=== PATIENT | female | born 1955 | race Caucasian/White ===

== ENCOUNTER 2017-03-08 09:00 | Emergency (ER) | payer OTHER ==
[2017-03-08] MEDS ORDERED: SODIUM CHLORIDE FLUSH 0.9% 10 ML SYRINGE IVP ONE ×2 (09:23→12:44)
[2017-03-08 09:28] LABS: BILIRUBIN,URINE NEGATIVE (NEGATIVE); UA CHARGE (STRIP ONLY) YES; UR CULTURE IF IND NOT INDICATED
[2017-03-08] MEDS ORDERED: KETOROLAC 60 MG/2 ML VIAL IVP STA (09:28)
--- NOTE | 2017-03-08 09:33 | ED Physician Documentation ---
PD HPI ABD PAIN - Stated complaint Stated Complaint: ABD PX - Chief complaint Chief Complaint: Abd Pain - History obtained from History obtained from: Patient - History of Present Illness Timing - onset: How many days ago (3) Timing - duration: Days (3) Timing - details: Gradual onset, Still present Quality: Cramping, Aching, Sharp, Pain Location: LLQ Radiation: Lower back Improved by: Laying still Worsened by: Moving, Position, Palpation Associated symptoms: Nausea. No: Fever, Vomiting, Diarrhea, Dysuria Similar symptoms before: Diagnosis (diverticulitis) Recently seen: Not recently seen - Additional information Additional information: Relatively healthy 61-year-old female has developed left lower quadrant abdominal pain that started about 3 days ago. She has had something similar to this previously with diverticulitis. At that time she spent 2 weeks in the hospital. She has not had fever or chills she has not had vomiting she has not had diarrhea. She did have a bowel movement yesterday. Review of Systems Constitutional: denies: Fever Eyes: denies: Decreased vision Ears: denies: Ear pain Nose: denies: Congestion Throat: denies: Sore throat Cardiac: denies: Chest pain / pressure, Palpitations Respiratory: denies: Dyspnea, Cough GI: reports: Abdominal Pain, Nausea. 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: No - POLST Patient has POLST: No PD ED PE NORMAL - Vitals Vital signs reviewed: Yes (Hypertensive) - General General: No acute distress, Well developed/nourished - HEENT HEENT: Atraumatic, PERRL, EOMI - Neck Neck: Supple, no meningeal sign - Cardiac Cardiac: RRR, No murmur - Respiratory Respiratory: No respiratory distress, Clear bilaterally - Abdomen Abdomen: Soft, Other (Mild tenderness to the left side of the abdomen in general without guarding or rebound tenderness) - Back Back: No CVA TTP, No spinal TTP - Derm Derm: Normal color, Warm and dry, No rash - Extremities Extremities: No deformity, No edema - Neuro Neuro: Alert and oriented X 3, No motor deficit, No sensory deficit, Normal speech - Psych Psych: Normal mood, Normal affect Results - Vitals Vitals: Vital Signs - 24 hr 03/08/17 03/08/17 03/08/17 09:06 10:44 11:56 Temperature 36.6 C 36.5 C 35.6 C L Heart Rate 86 66 61 Respiratory 18 12 16 Rate Blood Pressure 157/87 H 147/68 H 161/72 H O2 Saturation 99 97 97 03/08/17 13:41 Temperature 36.6 C Heart Rate 60 Respiratory 18 Rate Blood Pressure 130/72 O2 Saturation 96 Oxygen O2 Source Room air - Labs Labs: Laboratory Tests 03/08/17 03/08/17 03/08/17 09:14 09:20 09:20 WBC 10.6 RBC 4.25 Hgb 13.9 Hct 41.2 MCV 96.9 MCH 32.8 H MCHC 33.8 RDW 13.2 Plt Count 197 MPV 7.8 L Neut # 8.3 H Lymph # 1.4 L [place] # 0.8 Eos # 0.0 Baso # 0.1 Absolute Nucleated RBC 0.00 Nucleated RBC % 0.0 Sodium 138 Potassium 4.0 Chloride 101 Carbon Dioxide 25 Anion Gap 12.0 BUN 14 Creatinine 0.8 Estimated GFR (MDRD) 72 L Glucose 109 H Calcium 9.7 Total Bilirubin 0.7 AST 22 ALT 24 Alkaline Phosphatase 74 Total Protein 7.8 Albumin 4.4 Globulin 3.4 Albumin/Globulin Ratio 1.3 Lipase 18 L Urine Color DARK YELLOW Urine Clarity CLEAR Urine pH 6.0 Ur Specific [place] 1.020 Urine Protein NEGATIVE Urine Glucose (UA) NEGATIVE Urine Ketones NEGATIVE Urine Occult Blood NEGATIVE Urine Nitrite NEGATIVE Urine Bilirubin NEGATIVE Urine Urobilinogen 0.2 (NORMAL) Ur Leukocyte Esterase NEGATIVE Ur Microscopic Review NOT INDICATED Urine Culture Comments NOT INDICATED - Rads (name of study) CT abdomen pelvis with Radiology: Prelim report reviewed (Impression: 1. Probable sigmoid diverticulitis. Significant mid sigmoid inflammatory changes with probable inflamed diverticulum. 8 mm sigmoid wall thickening noted. Suggest early colonoscopy, if not recently performed, to exclude mass. No abscess. Numerous diverticula noted.), EMP read indepedently, See rad report Procedures - Bedside sono Bedside sono by EMP: With use of bedside ultrasound the left kidney is imaged it is sonographically nontender and without evidence of hydronephrosis. There does appear to be a pericaval cyst. - IVC sono (time) 0930 Bedside IVC sono: IVC measures (cm) (1.6), Euvolemia PD MEDICAL DECISION MAKING - ED course Complexity details: reviewed results, re-evaluated patient, considered differential, d/w patient ED course: 61-year-old female with recurrence of sigmoid diverticulitis. She had a previous hospitalization with a microperforation. Today she does not appear to have perforation or abscess. She is administered intravenous Flagyl and Cipro. We will place her on oral Cipro and Flagyl and have her follow-up with her primary. Departure - Departure Disposition: 01 Home, Self Care Clinical Impression: Diverticulitis of gastrointestinal tract Condition: Stable Instructions: ED Diverticulitis Follow-Up: Jaylene Corley ARNP [Primary Care Provider] - Prescriptions: Ciprofloxacin HCl [Cipro] 500 mg PO BID #10 tablet HYDROcod/ACETAM 5/325 [[place] 5/325] 1 - 2 ea PO Q6H PRN #15 tablet PRN Reason: Pain Metronidazole 500 mg PO BID #20 tablet Comments: Today in the Emergency Department your blood pressure was elevated. This can happen from the stress of the visit itself, from a current illness or circumstance or from uncontrolled hypertension. If you take blood pressure medications take your usual mediations, have your blood pressure re-checked in an appropriate setting and follow up any elevation with your primary care doctor. Forms: Activity restrictions
[2017-03-08 09:39] LABS: BASOPHILS # (AUTO) 0.1 10^3/uL (0.0-0.1); BASOPHILS % (AUTO) 0.5 %; EOSINOPHILS % (AUTO) 0.3 %; HCT - HEMATOCRIT 41.2 % (37.0-47.0); HGB - HEMOGLOBIN 13.9 g/dL (12.0-16.0); LYMPHOCYTES # (AUTO) 1.4 10^3/uL (1.5-3.5); LYMPHOCYTES % (AUTO) 12.8 %; MEAN CORPUSCULAR HEMOGLOBIN 32.8 pg (27.0-31.0); MEAN CORPUSCULAR HGB CONC 33.8 g/dL (32.0-36.0); MEAN CORPUSCULAR VOLUME 96.9 fL (81.0-99.0); MEAN PLATELET VOLUME 7.8 fL (7.9-10.8); MONOCYTES # (AUTO) 0.8 10^3/uL (0.0-1.0); MONOCYTES % (AUTO) 7.6 %; NEUTROPHILS # (AUTO) 8.3 10^3/uL (1.5-6.6); NEUTROPHILS % (AUTO) 78.8 %; RED BLOOD COUNT 4.25 10^6/uL (4.20-5.40); RED CELL DISTRIBUTION WIDTH 13.2 % (12.0-15.0); UNCORRECTED WHITE BLOOD COUNT 10.6 x10^3/uL; WHITE BLOOD COUNT 10.6 x10^3/uL (4.8-10.8)
[2017-03-08] MEDS ORDERED: KETOROLAC 30 MG/ML VIAL ONE (09:43)
[2017-03-08 09:53] LABS: ALBUMIN/GLOBULIN RATIO 1.3 (1.0-2.2); BILIRUBIN,TOTAL 0.7 mg/dL (0.2-1.0); CALCIUM 9.7 mg/dL (8.5-10.3); CREATININE 0.8 mg/dL (0.4-1.0); TOTAL PROTEIN 7.8 g/dL (6.7-8.2)
[2017-03-08] MEDS ORDERED: IOPAMIDOL-300 100 ML VIAL ONE (10:08)
[2017-03-08] MEDS ORDERED: IOPAMIDOL-300 100 ML VIAL IVP ONE (10:31)
--- NOTE | 2017-03-08 11:12 | CT Preliminary Report ---
Exam: CT Abdomen/Pelvis W/ IMPRESSION: 1. Probable sigmoid diverticulitis. Significant mid sigmoid inflammatory changes with probable inflam ed diverticulum. 8 mm sigmoid wall thickening noted. Suggest early colonoscopy, if not recently perfo rmed, to exclude mass. No abscess. Numerous diverticula noted. [facility] SITE ID: [id number]
--- NOTE | 2017-03-08 11:14 | CT Report ---
EXAM: CT ABDOMEN AND PELVIS EXAM DATE: 03/08/2017 10:33 AM. CLINICAL HISTORY: Left lower quadrant pain. COMPARISONS: None. TECHNIQUE: Routine helical CT imaging was performed through the abdomen and pelvis. IV contrast: 100 cc Isovue-300. Enteric contrast: No. Reconstructions: Coronal and sagittal. In accordance with CT protocol optimization, one or more of the following dose reduction techniques w ere utilized for this exam: automated exposure control, adjustment of mA and/or KV based on patient s ize, or use of iterative reconstructive technique. FINDINGS: Lung Bases: Dependent right basilar atelectasis. Liver: Normal. No masses. Gallbladder/Bile Ducts: Unremarkable. Spleen: Normal. Pancreas: Normal. Adrenal Glands: Normal. Kidneys: Several left renal cysts, including a 2.3 cm lateral left upper renal cyst. No suspicious ma sses or hydronephrosis. Peritoneal Cavity/Bowel: Moderate mid sigmoid inflammation likely due to diverticulitis. Probable inf lamed diverticulum anterior to mid sigmoid colon on series 3 image 65. 8 mm sigmoid wall thickness. A djacent soft tissue stranding. Numerous diverticula. No dilated bowel. Pelvic Organs: Probable prior hysterectomy with collapsed small bowel loops adjacent to bladder. Unre markable bladder. Vasculature: No abdominal aortic aneurysm. Extensive atherosclerotic arterial calcifications. Bones: No significant abnormality. Other: None. IMPRESSION: 1. Probable sigmoid diverticulitis. Significant mid sigmoid inflammatory changes with probable inflam ed diverticulum. 8 mm sigmoid wall thickening noted. Suggest early colonoscopy, if not recently perfo rmed, to exclude mass. No abscess. Numerous diverticula noted. [facility] Referring Provider Line: [phone] SITE ID: [id number]
[2017-03-08] MEDS ORDERED: metroNIDAZOLE 500 MG/100 ML 500 MG/100 ML BAG IV ONE (11:16)
[2017-03-08] MEDS ORDERED: CIPROFLOXACIN 400 MG/200 ML 200 ML IV ONE ×2 (11:16→11:39)
[2017-03-08] MEDS ORDERED: metroNIDAZOLE 500 MG/100 ML 500 MG/100 ML BAG ONE (12:33)
[2017-03-08 13:42] VITALS: BP 130/72
== END 2017-03-08 14:03 | disposition home or self-care (01) ==
LOC: ED 09:00
DX: K57.92 Diverticulitis of intestine, part unspecified, without perforation or abscess without bleeding (principal); R03.0 Elevated blood-pressure reading, without diagnosis of hypertension; F17.200 Nicotine dependence, unspecified, uncomplicated
CPT/HCPCS: 36415; 74177; 80053; 81003; 83690; 85025; 96365; 96367; 96375; 99284; Q9967; 81001; 87086

== ENCOUNTER 2017-08-26 21:16 | Outpatient (CLI) | payer OTHER | END 2017-08-26 21:17 | disposition critical access hospital (66) | LOC: EDBD → EMS 21:16 | PROVIDERS: ATTEND Surgery | DX: R53.1 Weakness (principal); R55 Syncope and collapse; R07.9 Chest pain, unspecified | CPT/HCPCS: A0425; A0427 ==

== ENCOUNTER 2017-08-26 21:32 | Emergency (ER) | payer OTHER ==
[2017-08-26] MEDS ORDERED: SODIUM CHLORIDE 0.9% 1,000 ML IV ONE (21:41)
[2017-08-26 22:08] LABS: BASOPHILS # (AUTO) 0.1 10^3/uL (0.0-0.1); BASOPHILS % (AUTO) 0.5 %; EOSINOPHILS # (AUTO) 0.1 10^3/uL (0.0-0.7); EOSINOPHILS % (AUTO) 0.4 %; HGB - HEMOGLOBIN 13.9 g/dL (12.0-16.0); LYMPHOCYTES # (AUTO) 1.2 10^3/uL (1.5-3.5); LYMPHOCYTES % (AUTO) 10.7 %; MEAN CORPUSCULAR HGB CONC 32.9 g/dL (32.0-36.0); MEAN CORPUSCULAR VOLUME 97.3 fL (81.0-99.0); MEAN PLATELET VOLUME 7.6 fL (7.9-10.8); MONOCYTES # (AUTO) 0.8 10^3/uL (0.0-1.0); MONOCYTES % (AUTO) 6.7 %; NEUTROPHILS # (AUTO) 9.4 10^3/uL (1.5-6.6); NEUTROPHILS % (AUTO) 81.7 %; PLT - PLATELET COUNT 203 10^3/uL (130-450); RED BLOOD COUNT 4.33 10^6/uL (4.20-5.40); RED CELL DISTRIBUTION WIDTH 13.3 % (12.0-15.0); WHITE BLOOD COUNT 11.5 x10^3/uL (4.8-10.8)
--- NOTE | 2017-08-26 22:11 | XRAY Preliminary Report ---
Exam: XR CHEST 2 VIEW X-RAY IMPRESSION: No acute pulmonary process. Probable COPD. [facility] SITE ID: [id number]
[2017-08-26 22:17] LABS: MUDS CUTOFF CONCENTRATIONS CUTOFF CONC BELOW:
[2017-08-26 22:19] LABS: BILIRUBIN,URINE NEGATIVE (NEGATIVE); GLUCOSE, URINE (UA) NEGATIVE (NEGATIVE); KETONES,URINE (UA) NEGATIVE (NEGATIVE); LEUKOCYTE ESTERASE, URINE NEGATIVE (NEGATIVE); NITRITE,URINE NEGATIVE (NEGATIVE); OCCULT BLOOD,URINE NEGATIVE (NEGATIVE); PROTEIN,URINE 30 mg/dL (NEGATIVE); UROBILINOGEN,URINE 0.2 (NORMAL) E.U./dL (NORMAL)
--- NOTE | 2017-08-26 22:20 | XRAY Report ---
EXAM: CHEST RADIOGRAPHY EXAM DATE: 08/26/2017 09:53 PM. CLINICAL HISTORY: Chest pain, hypotension. COMPARISON: None. TECHNIQUE: 2 views. FINDINGS: Lungs/Pleura: Lungs are mildly hyperinflated. No focal opacities. No pneumothorax or effusions. Mediastinum: Heart and mediastinal contours are unremarkable. Other: None. IMPRESSION: No acute pulmonary process. Probable COPD. [facility] Referring Provider Line: [phone] SITE ID: [id number]
[2017-08-26 22:21] LABS: CLARITY,URINE HAZY (CLEAR)
[2017-08-26 22:21] LABS: ALBUMIN 4.3 g/dL (3.2-5.5); ALBUMIN/GLOBULIN RATIO 1.7 (1.0-2.2); ALKALINE PHOSPHATASE 96 IU/L (42-121); ALT ALANINE AMINOTRANSFERASE 42 IU/L (10-60); AST ASPARTATE AMINOTRANSFERASE 67 IU/L (10-42); BILIRUBIN,TOTAL 0.4 mg/dL (0.2-1.0); BUN - BLOOD UREA NITROGEN 18 mg/dL (6-20); CALCIUM 8.9 mg/dL (8.5-10.3); CARBON DIOXIDE - CO2 27 mmol/L (21-32); CHLORIDE 109 mmol/L (101-111); CREATININE 0.9 mg/dL (0.4-1.0); GFR - MDRD 63 (>89); GLUCOSE 110 mg/dL (70-100); LIPASE 15 U/L (22-51); SODIUM 143 mmol/L (135-145); TOTAL PROTEIN 6.9 g/dL (6.7-8.2)
[2017-08-26 22:28] LABS: RBC,URINE None Seen /HPF (0-5)
[2017-08-26 22:29] LABS: AMORPHOUS SEDIMENT,UR Moderate /LPF; AMPHETAMINE SCREEN,URINE NEGATIVE (NEGATIVE); BACTERIA,URINE Few /HPF (None Seen); BENZODIAZEPINES SCREEN, URINE NEGATIVE (NEGATIVE); COCAINE SCREEN URINE NEGATIVE (NEGATIVE); METHADONE SCREEN, URINE NEGATIVE (NEGATIVE); METHAMPHETAMINES SCREEN, URINE NEGATIVE (NEGATIVE); OPIATE SCREEN, URINE NEGATIVE (NEGATIVE); OXYCODONE SCREEN, URINE NEGATIVE (NEGATIVE); PROPOXYPHENE SCREEN, URINE NEGATIVE (NEGATIVE); SQUAMOUS EPITHELIAL CELL,UR MANY Squamous (<= Few); TRICYCLIC ANTIDEPRESSANT,URINE NEGATIVE (NEGATIVE)
[2017-08-26] MEDS ORDERED: IOPAMIDOL-300 100 ML VIAL ONE (22:43)
[2017-08-26] MEDS ORDERED: IOPAMIDOL-300 100 ML VIAL IVP ONE (22:57)
--- NOTE | 2017-08-26 23:14 | CT Preliminary Report ---
Exam: CT CHEST ANGIO (PE) IMPRESSION: 1. No pulmonary emboli seen. 2. Emphysema with bilateral interstitial disease of uncertain chronicity. Mild interstitial edema cou ld be present. 3. Coronary artery calcifications. [facility] SITE ID: [id number]
--- NOTE | 2017-08-26 23:14 | CT Report ---
EXAM: CT ANGIOGRAM CHEST EXAM DATE: 08/26/2017 11:01 PM. CLINICAL HISTORY: Chest pain, syncope. COMPARISON: None. TECHNIQUE: Routine helical imaging was performed through the chest in the pulmonary arterial phase. I V Contrast: Nonionic. Reconstructions: Coronal 3-D MIP reconstructions.Sagittal and coronal. In accordance with CT protocol optimization, one or more of the following dose reduction techniques w ere utilized for this exam: automated exposure control, adjustment of mA and/or KV based on patient s ize, or use of iterative reconstructive technique. FINDINGS: Pulmonary Arteries: Diagnostic quality: Adequate through the segmental arteries. No evidence for acute or chronic pulmona ry emboli. No evidence of right heart strain. Lungs/Pleura: Emphysema. Interstitial disease of uncertain chronicity. Mild bibasilar atelectasis. No pleural effusion. No pneumothorax. Mediastinum: Heart size is normal. Coronary artery calcifications. No lymphadenopathy seen. Thoracic Aorta: Moderate atherosclerosis. No aneurysm or dissection. Upper Abdomen: Unremarkable. Other: None. IMPRESSION: 1. No pulmonary emboli seen. 2. Emphysema with bilateral interstitial disease of uncertain chronicity. Mild interstitial edema cou ld be present. 3. Coronary artery calcifications. [facility] Referring Provider Line: [phone] SITE ID: [id number]
--- NOTE | 2017-08-26 23:49 | ED Physician Documentation ---
PD HPI SYNCOPE - Stated complaint Stated Complaint: NEAR SYNCOPE - Chief complaint Chief Complaint: Neuro - History obtained from History obtained from: Patient, EMS - History of Present Illness Timing - onset: Today Duration: Minutes Preceding symptoms: Chest pain, Diaphoresis Associated symptoms: No: Seizure Contributing factors: No: Noxious stimulae, Just stood up Similar symptoms before: Has not had sx before Recently seen: Not recently seen - Additional information Additional information: Patient is a 62 year old female with likely emphysema who was brought in by ems for near syncopal episode and chest pain. According to patient and ems patient was in her bathroom and had severe left sided chest pain, became diaphoretic and almost passed out. patient called ems. When ems arrived patient was found to be hypotensive. Patient was treated with 325mg of aspirin and nitro before being brought to the emergency department. Upon initial evaluation in the emergency department patient's chest pain had improved and she was normotensive. ptient was mildly diaphoretic. Review of Systems Constitutional: denies: Fever, Chills, Myalgias Eyes: denies: Decreased vision, Photophobia Ears: reports: Reviewed and negative Nose: reports: Reviewed and negative Throat: reports: Reviewed and negative Cardiac: reports: Chest pain / pressure. denies: Palpitations, Calf pain Respiratory: denies: Dyspnea, Cough, Wheezing GI: reports: Nausea. denies: Abdominal Pain, Vomiting, Diarrhea : reports: Reviewed and negative Skin: reports: Other (diaphoresis). denies: Rash, Lesions Musculoskeletal: denies: Extremity pain, Extremity swelling Neurologic: reports: Near syncope. 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: No - POLST Patient has POLST: No PD ED PE NORMAL - Vitals Vital signs reviewed: Yes - General General: Alert and oriented X 3 - HEENT HEENT: Atraumatic - Neck Neck: No JVD - Cardiac Cardiac: RRR - Abdomen Abdomen: Soft, Non distended - Derm Derm: Normal color - Extremities Extremities: No calf tenderness / cord - Neuro Neuro: Alert and oriented X 3, No motor deficit, Normal speech Eye Opening: Spontaneous Motor: Obeys Commands Verbal: Oriented GCS Score: 15 PD ED PE EXPANDED - Respiratory Respiratory: Wheezing (minimal wheezing) - Derm Derm: Diaphoretic Results - Vitals Vitals: Vital Signs - 24 hr 08/26/17 08/27/17 21:35 01:24 Heart Rate 83 66 Respiratory 18 14 Rate Blood Pressure 165/81 H 116/64 O2 Saturation 97 100 Oxygen O2 Source Room air - EKG (time done) 2140 Rate: Rate (enter#) (82) Rhythm: NSR, SVT Intervals: Prolonged QT Ischemia: ST depression Compare to prior EKG: Old EKG unavailable 2259 Rate: Rate (enter#) (83) [place]: Normal Intervals: Normal MA Ischemia: ST depression Compare to prior EKG: Unchanged from prior EKG - Labs Labs: Laboratory Tests 08/26/17 08/26/17 08/26/17 21:59 21:59 21:59 WBC 11.5 H RBC 4.33 Hgb 13.9 Hct 42.1 MCV 97.3 MCH 32.0 H MCHC 32.9 RDW 13.3 Plt Count 203 MPV 7.6 L Neut # 9.4 H Lymph # 1.2 L [place] # 0.8 Eos # 0.1 Baso # 0.1 Absolute Nucleated RBC 0.01 Nucleated RBC % 0.1 Sodium 143 Potassium 4.2 Chloride 109 Carbon Dioxide 27 Anion Gap 7.0 BUN 18 Creatinine 0.9 Estimated GFR (MDRD) 63 L Glucose 110 H Lactic Acid Calcium 8.9 Total Bilirubin 0.4 AST 67 H ALT 42 Alkaline Phosphatase 96 Troponin I 0.12 B-Natriuretic Peptide Total Protein 6.9 Albumin 4.3 Globulin 2.6 Albumin/Globulin Ratio 1.7 Lipase 15 L TSH Urine Color Urine Clarity Urine pH Ur Specific [place] Urine Protein Urine Glucose (UA) Urine Ketones Urine Occult Blood Urine Nitrite Urine Bilirubin Urine Urobilinogen Ur Leukocyte Esterase Urine RBC Urine WBC Ur Squamous Epith Cells Amorphous Sediment Urine Bacteria Ur Microscopic Review Urine Culture Comments Urine Opiates Screen Ur Oxycodone Screen Urine Methadone Screen Ur Propoxyphene Screen Ur Barbiturates Screen Ur Tricyclics Screen Ur Phencyclidine Scrn Ur Amphetamine Screen U Methamphetamines Scrn U Benzodiazepines Scrn Urine Cocaine Screen U Cannabinoids Screen Ethyl Alcohol < 5.0 08/26/17 08/26/17 08/26/17 21:59 21:59 21:59 WBC RBC Hgb Hct MCV MCH MCHC RDW Plt Count MPV Neut # Lymph # [place] # Eos # Baso # Absolute Nucleated RBC Nucleated RBC % Sodium Potassium Chloride Carbon Dioxide Anion Gap BUN Creatinine Estimated GFR (MDRD) Glucose Lactic Acid 1.7 Calcium Total Bilirubin AST ALT Alkaline Phosphatase Troponin I B-Natriuretic Peptide 28 Total Protein Albumin Globulin Albumin/Globulin Ratio Lipase TSH 8.18 H Urine Color Urine Clarity Urine pH Ur Specific [place] Urine Protein Urine Glucose (UA) Urine Ketones Urine Occult Blood Urine Nitrite Urine Bilirubin Urine Urobilinogen Ur Leukocyte Esterase Urine RBC Urine WBC Ur Squamous Epith Cells Amorphous Sediment Urine Bacteria Ur Microscopic Review Urine Culture Comments Urine Opiates Screen Ur Oxycodone Screen Urine Methadone Screen Ur Propoxyphene Screen Ur Barbiturates Screen Ur Tricyclics Screen Ur Phencyclidine Scrn Ur Amphetamine Screen U Methamphetamines Scrn U Benzodiazepines Scrn Urine Cocaine Screen U Cannabinoids Screen Ethyl Alcohol 08/26/17 08/26/17 22:10 23:40 WBC RBC Hgb Hct MCV MCH MCHC RDW Plt Count MPV Neut # Lymph # [place] # Eos # Baso # Absolute Nucleated RBC Nucleated RBC % Sodium Potassium Chloride Carbon Dioxide Anion Gap BUN Creatinine Estimated GFR (MDRD) Glucose Lactic Acid Calcium Total Bilirubin AST ALT Alkaline Phosphatase Troponin I 0.11 B-Natriuretic Peptide Total Protein Albumin Globulin Albumin/Globulin Ratio Lipase TSH Urine Color YELLOW Urine Clarity [place] Urine pH 7.0 Ur Specific [place] 1.020 Urine Protein 30 H Urine Glucose (UA) NEGATIVE Urine Ketones NEGATIVE Urine Occult Blood NEGATIVE Urine Nitrite NEGATIVE Urine Bilirubin NEGATIVE Urine Urobilinogen 0.2 (NORMAL) Ur Leukocyte Esterase NEGATIVE Urine RBC None Seen Urine WBC 0-3 Ur Squamous Epith Cells MANY Squamous H Amorphous Sediment Moderate Urine Bacteria Few Ur Microscopic Review INDICATED Urine Culture Comments NOT INDICATED Urine Opiates Screen NEGATIVE Ur Oxycodone Screen NEGATIVE Urine Methadone Screen NEGATIVE Ur Propoxyphene Screen NEGATIVE Ur Barbiturates Screen NEGATIVE Ur Tricyclics Screen NEGATIVE Ur Phencyclidine Scrn NEGATIVE Ur Amphetamine Screen NEGATIVE U Methamphetamines Scrn NEGATIVE U Benzodiazepines Scrn NEGATIVE Urine Cocaine Screen NEGATIVE U Cannabinoids Screen NEGATIVE Ethyl Alcohol - Rads (name of study) ct angio Radiology: Final report received (No PE, but calcification of coronary arteries) , See rad report PD MEDICAL DECISION MAKING - ED course Complexity details: reviewed old records, reviewed results, re-evaluated patient , considered differential, d/w patient, d/w family, d/w mergers and acquisitions consultant ED course: Patient was seen and examined at bedside. ekg was performed and showed diffuse ST segment depressions but no elevations. IV access was gained and labs were drawn. patient was treated with a fluid bolus. CT angio was ordered. There was No PE but there was calcification of the coronaries. Patient's troponin was mildly elevated but not positive. patient required a higher level of care with cardiology so [facility] was contacted. Case was discussed with Dr. Ramirez Cardiology, and Dr. Arroyo hospitalist who ultimately accepted the patient. Patient was made aware of the findings and the plan and was transferred in stable condition. Departure - Departure Disposition: 02 Transfer Acute Care Hosp Clinical Impression: Syncope Condition: Stable
[2017-08-27 01:24] VITALS: BP 116/64
== END 2017-08-27 01:59 | disposition short-term general hospital (02) ==
LOC: EDBD → EDUNIT# → EDBD 21:32 → ED 21:32
DX: R55 Syncope and collapse (principal); F17.200 Nicotine dependence, unspecified, uncomplicated
CPT/HCPCS: 36415; 71046; 71275; 80053; 80306; 80320; 81001; 83605; 83690; 83880; 84443; 84484; 85025; 93005; 96360; 96361; 99285; Q9967; 81003; 87086; 99284

== ENCOUNTER 2017-08-27 01:50 | Outpatient (CLI) | payer OTHER | END 2017-08-27 01:51 | disposition short-term general hospital (02) | LOC: EDBD → EMS 01:50 | PROVIDERS: ATTEND Surgery | DX: R55 Syncope and collapse (principal) | CPT/HCPCS: A0425; A0428 ==

== ENCOUNTER 2017-10-07 08:01 | Outpatient (CLI) | payer OTHER ==
[2017-10-07 13:16] LABS: BASOPHILS % (AUTO) 0.5 %; EOSINOPHILS # (AUTO) 0.2 10^3/uL (0.0-0.7); EOSINOPHILS % (AUTO) 1.9 %; HGB - HEMOGLOBIN 13.5 g/dL (12.0-16.0); LYMPHOCYTES # (AUTO) 1.2 10^3/uL (1.5-3.5); LYMPHOCYTES % (AUTO) 13.3 %; MEAN CORPUSCULAR HEMOGLOBIN 31.9 pg (27.0-31.0); MEAN CORPUSCULAR VOLUME 99.7 fL (81.0-99.0); MEAN PLATELET VOLUME 8.1 fL (7.9-10.8); MONOCYTES # (AUTO) 0.7 10^3/uL (0.0-1.0); MONOCYTES % (AUTO) 7.6 %; NEUTROPHILS # (AUTO) 6.8 10^3/uL (1.5-6.6); NEUTROPHILS % (AUTO) 76.7 %; PLT - PLATELET COUNT 233 10^3/uL (130-450); RED BLOOD COUNT 4.23 10^6/uL (4.20-5.40); RED CELL DISTRIBUTION WIDTH 14.5 % (12.0-15.0); WHITE BLOOD COUNT 8.9 x10^3/uL (4.8-10.8)
[2017-10-07 13:21] LABS: BUN - BLOOD UREA NITROGEN 15 mg/dL (6-20); CALCIUM 9.7 mg/dL (8.5-10.3); CARBON DIOXIDE - CO2 24 mmol/L (21-32); CHLORIDE 104 mmol/L (101-111); CHOL/HDL RATIO 2.2 (<4.4); CHOLESTEROL 146 mg/dL; CREATININE 0.8 mg/dL (0.4-1.0); GFR - MDRD 72 (>89); GLUCOSE 97 mg/dL (70-100); HDL CHOLESTEROL 65 mg/dL; LDL CHOLESTEROL,CALCULATED 57 mg/dL; LDL/HDL RATIO 0.9 (<4.4); SODIUM 137 mmol/L (135-145); VLDL CHOLESTEROL 24 mg/dL
== END 2017-10-07 08:02 | disposition home or self-care (01) ==
LOC: LAB.N 08:01
PROVIDERS: ATTEND Physician Assistant
DX: I25.10 Atherosclerotic heart disease of native coronary artery without angina pectoris (principal)
CPT/HCPCS: 36415; 80048; 80061; 83721; 85025

== ENCOUNTER 2018-03-16 07:33 | Outpatient (CLI) | payer MEDICARE, OTHER ==
[2018-03-16 12:59] LABS: BASOPHILS % (AUTO) 0.3 %; BUN - BLOOD UREA NITROGEN 20 mg/dL (6-20); CALCIUM 9.2 mg/dL (8.5-10.3); CARBON DIOXIDE - CO2 28 mmol/L (21-32); CHLORIDE 107 mmol/L (101-111); CHOL/HDL RATIO 1.9 (<4.4); CHOLESTEROL 147 mg/dL; CREATININE 0.8 mg/dL (0.4-1.0); EOSINOPHILS # (AUTO) 0.1 10^3/uL (0.0-0.7); EOSINOPHILS % (AUTO) 1.9 %; GFR - MDRD 72 (>89); GLUCOSE 101 mg/dL (70-100); HDL CHOLESTEROL 77 mg/dL; HGB - HEMOGLOBIN 14.1 g/dL (12.0-16.0); LDL CHOLESTEROL,CALCULATED 52 mg/dL; LDL/HDL RATIO 0.7 (<4.4); LYMPHOCYTES # (AUTO) 1.3 10^3/uL (1.5-3.5); LYMPHOCYTES % (AUTO) 22.2 %; MEAN CORPUSCULAR HGB CONC 33.6 g/dL (32.0-36.0); MEAN CORPUSCULAR VOLUME 98.3 fL (81.0-99.0); MEAN PLATELET VOLUME 8.1 fL (7.9-10.8); MONOCYTES # (AUTO) 0.4 10^3/uL (0.0-1.0); NEUTROPHILS % (AUTO) 68.6 %; PLT - PLATELET COUNT 200 10^3/uL (130-450); RED BLOOD COUNT 4.29 10^6/uL (4.20-5.40); RED CELL DISTRIBUTION WIDTH 14.2 % (12.0-15.0); SODIUM 141 mmol/L (135-145); VLDL CHOLESTEROL 18 mg/dL; WHITE BLOOD COUNT 5.8 x10^3/uL (4.8-10.8)
== END 2018-03-16 07:34 | disposition home or self-care (01) ==
LOC: LAB.N 07:33
PROVIDERS: ATTEND Physician Assistant Medical
DX: I25.10 Atherosclerotic heart disease of native coronary artery without angina pectoris (principal)
CPT/HCPCS: 36415; 80048; 80061; 83721; 85025

== ENCOUNTER 2018-06-28 14:15 | Outpatient (CLI) | payer MEDICARE, OTHER ==
--- NOTE | 2018-06-28 16:02 | XRAY Report ---
Reason: cough,sob Procedure Date: 06/28/2018 Accession Number: [id number] / [id number] Procedure: XRN - Chest 2 View X-Ray CPT Code: 76983 FULL RESULT: EXAM: CHEST RADIOGRAPHY EXAM DATE: 06/28/2018 02:31 PM. CLINICAL HISTORY: Cough, shortness of breath. COMPARISON: Chest 2 views 08/26/2017. TECHNIQUE: 2 views. FINDINGS: Lungs/Pleura: No focal opacities evident. No pleural effusion. No pneumothorax. High lung volumes with flattened diaphragms, sometimes seen with obstructive lung disease. Mediastinum: Cardiomediastinal silhouette demonstrates interval CABG. The aortic arch is calcified. Other: None. IMPRESSION: No pneumonia. [facility]
== END 2018-06-28 14:16 | disposition home or self-care (01) ==
LOC: DI.N 14:15
PROVIDERS: ATTEND Nurse Practitioner Gerontology
DX: R05 Cough (principal); R06.02 Shortness of breath
CPT/HCPCS: 71046

== ENCOUNTER 2018-08-14 16:28 | Emergency (ER) | payer MEDICARE, OTHER ==
[2018-08-14 17:08] LABS: BASOPHILS # (AUTO) 0.1 10^3/uL (0.0-0.1); BASOPHILS % (AUTO) 0.4 %; EOSINOPHILS # (AUTO) 0.1 10^3/uL (0.0-0.7); EOSINOPHILS % (AUTO) 0.4 %; HGB - HEMOGLOBIN 14.8 g/dL (12.0-16.0); LYMPHOCYTES # (AUTO) 1.3 10^3/uL (1.5-3.5); LYMPHOCYTES % (AUTO) 10.9 %; MEAN CORPUSCULAR HGB CONC 32.7 g/dL (32.0-36.0); MEAN CORPUSCULAR VOLUME 97.9 fL (81.0-99.0); MEAN PLATELET VOLUME 8.2 fL (7.9-10.8); MONOCYTES % (AUTO) 8.2 %; NEUTROPHILS # (AUTO) 9.8 10^3/uL (1.5-6.6); NEUTROPHILS % (AUTO) 80.1 %; PLT - PLATELET COUNT 231 10^3/uL (130-450); RED BLOOD COUNT 4.63 10^6/uL (4.20-5.40); RED CELL DISTRIBUTION WIDTH 14.2 % (12.0-15.0); WHITE BLOOD COUNT 12.3 x10^3/uL (4.8-10.8)
[2018-08-14 17:14] LABS: BILIRUBIN,URINE NEGATIVE (NEGATIVE); GLUCOSE, URINE (UA) NEGATIVE (NEGATIVE); KETONES,URINE (UA) TRACE mg/dL (NEGATIVE); LEUKOCYTE ESTERASE, URINE NEGATIVE (NEGATIVE); NITRITE,URINE NEGATIVE (NEGATIVE); OCCULT BLOOD,URINE NEGATIVE (NEGATIVE); PH,URINE 5.5 PH (5.0-7.5); PROTEIN,URINE NEGATIVE (NEGATIVE); UROBILINOGEN,URINE 0.2 (NORMAL) E.U./dL (NORMAL)
[2018-08-14 17:18] LABS: CLARITY,URINE CLEAR (CLEAR)
[2018-08-14 17:20] LABS: ALBUMIN 4.7 g/dL (3.2-5.5); ALBUMIN/GLOBULIN RATIO 1.6 (1.0-2.2); BILIRUBIN,TOTAL 0.3 mg/dL (0.2-1.0); CALCIUM 9.3 mg/dL (8.5-10.3); CREATININE 0.8 mg/dL (0.4-1.0); TOTAL PROTEIN 7.7 g/dL (6.7-8.2)
--- NOTE | 2018-08-14 19:10 | ED Physician Documentation ---
PD HPI ABD PAIN - Stated complaint Stated Complaint: LOWER ABD PX - Chief complaint Chief Complaint: Abd Pain - History obtained from History obtained from: Patient - History of Present Illness Timing - onset: How many days ago (2) Timing - duration: Days (2) Timing - details: Abrupt onset, Still present Quality: Cramping, Aching, Pain Location: Suprapubic, LLQ Radiation: Lower back Improved by: Laying still. No: Eating Worsened by: Moving, Palpation. No: Eating, Breathing Associated symptoms: Nausea. No: Fever, Vomiting, Diarrhea, Constipation (last BM few days ago), Dysuria Similar symptoms before: Has not had sx before (she has had diverticulitis couple of times and had perforation on it, per patient, but she says the current symptoms do not feel like the prior divertic.) Recently seen: Not recently seen Review of Systems Constitutional: reports: Myalgias. denies: Fever, Chills Nose: denies: Rhinorrhea / runny nose, Congestion Throat: denies: Sore throat Respiratory: denies: Cough GI: reports: Abdominal Pain, Nausea. denies: Abdominal Swelling, Vomiting, Constipation, Diarrhea, Bloody / black stool : denies: Dysuria, Frequency Neurologic: reports: Generalized weakness. 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 - Present Medications Home Medications: Ambulatory Orders Medication Instructions Recorded Confirmed Ciprofloxacin HCl [Cipro] 500 mg PO BID #10 tablet 03/08/17 HYDROcod/ACETAM 5/325 [[place] 5/325] 1 - 2 ea PO Q6H PRN #15 tablet 03/08/17 Metronidazole 500 mg PO BID #20 tablet 03/08/17 Cephalexin [Keflex] 500 mg PO TID #21 capsule 08/14/18 Docusate Sodium 100 mg PO DAILY #20 capsule 08/14/18 Hydrocodone/Acetaminophen [[place] 1 each PO Q6H PRN #15 tablet 08/14/18 5-325 Tablet] Metronidazole [Flagyl] 500 mg PO BID #20 tablet 08/14/18 Ondansetron Odt [Zofran] 4 mg TL Q6H PRN #10 tablet 08/14/18 - Allergies Allergies/Adverse Reactions: Allergies Allergy/AdvReac Type Severity Reaction Status Date / Time No Known Drug Allergies Allergy Verified 08/14/18 16:47 - Social History Does the pt smoke?: Yes Smoking Status: Current every day smoker Does the pt drink ETOH?: Yes Does the pt have substance abuse?: No - POLST Patient has POLST: No PD ED PE NORMAL - Vitals Vital signs reviewed: Yes - General General: Alert and oriented X 3, No acute distress, Well developed/nourished - HEENT HEENT: Ears normal, Pharynx benign - Neck Neck: Supple, no meningeal sign, No adenopathy - Cardiac Cardiac: RRR, No murmur - Respiratory Respiratory: Clear bilaterally - Abdomen Abdomen: Normal bowel sounds, Non distended, No organomegaly, Other (tender LLQ to suprapubic without percussion nor rebound.) - Female Female : Deferred - Rectal Rectal: Deferred - Back Back: No CVA TTP - Derm Derm: Normal color, Warm and dry Results - Vitals Vitals: Oxygen O2 Source Room air - Labs Labs: Laboratory Tests 08/14/18 08/14/18 08/14/18 16:55 17:00 17:00 WBC 12.3 H RBC 4.63 Hgb 14.8 Hct 45.3 MCV 97.9 MCH 32.0 H MCHC 32.7 RDW 14.2 Plt Count 231 MPV 8.2 Neut # (Auto) 9.8 H Lymph # (Auto) 1.3 L [place] # (Auto) 1.0 Eos # (Auto) 0.1 Baso # (Auto) 0.1 Absolute Nucleated RBC 0.01 Nucleated RBC % 0.1 Sodium 136 Potassium 4.4 Chloride 102 Carbon Dioxide 24 Anion Gap 10.0 BUN 16 Creatinine 0.8 Estimated GFR (MDRD) 72 L Glucose 103 H Calcium 9.3 Total Bilirubin 0.3 AST 22 ALT 20 Alkaline Phosphatase 104 Total Protein 7.7 Albumin 4.7 Globulin 3.0 Albumin/Globulin Ratio 1.6 Lipase 34 Urine Color YELLOW Urine Clarity CLEAR Urine pH 5.5 Ur Specific [place] 1.025 Urine Protein NEGATIVE Urine Glucose (UA) NEGATIVE Urine Ketones TRACE Urine Occult Blood NEGATIVE Urine Nitrite NEGATIVE Urine Bilirubin NEGATIVE Urine Urobilinogen 0.2 (NORMAL) Ur Leukocyte Esterase NEGATIVE Ur Microscopic Review NOT INDICATED Urine Culture Comments NOT INDICATED - Rads (name of study) abd CT Radiology: Prelim report reviewed (uncomplicated diverticulitis), See rad report PD MEDICAL DECISION MAKING - ED course Complexity details: reviewed results (uncomplicated sigmoid diverticulitis. ), re-evaluated patient, considered differential (seems like could be diverticulitis again, but she says it feels different, so can test/image to see if complicated divertic vs. abscess or kidney stone. ), d/w patient Departure - Departure Disposition: 01 Home, Self Care Clinical Impression: Acute diverticulitis, Abdominal pain, left lower quadrant Condition: Stable Record reviewed to determine appropriate education?: Yes Instructions: ED Diverticulitis Follow-Up: Jaylene Corley ARNP [Primary Care Provider] - Prescriptions: Cephalexin [Keflex] 500 mg PO TID #21 capsule Docusate Sodium 100 mg PO DAILY #20 capsule Hydrocodone/Acetaminophen [[place] 5-325 Tablet] 1 each PO Q6H PRN #15 tablet PRN Reason: Pain Metronidazole [Flagyl] 500 mg PO BID #20 tablet Ondansetron Odt [Zofran] 4 mg TL Q6H PRN #10 tablet PRN Reason: Nausea / Vomiting Comments: Drink lots of fluids. Use a stool softener so you do not Bound up with pain medicine. Use Tylenol if needed for pain add oxycodone for worse pain. Ondansetron for nausea as needed. You do have diverticulitis on the CT scan. Use the cephalexin and metronidazole antibiotics as prescribed for a week. Recheck if not improving over the next few days. Discharge Date/Time: 08/14/18 21:50
[2018-08-14] MEDS ORDERED: KETOROLAC 15 MG/ML VIAL IVP STA (19:29)
[2018-08-14] MEDS ORDERED: cefTRIAXone 1 GM VIAL IVP STA (19:29)
[2018-08-14] MEDS ORDERED: SODIUM CHLORIDE 0.9% 1,000 ML IV ONE (19:29)
[2018-08-14] MEDS ORDERED: HYDROmorphone 1 MG/ML CARPUJECT IVP STA (19:29)
[2018-08-14] MEDS ORDERED: ONDANSETRON 4 MG/2 ML VIAL IVP STA (19:29)
[2018-08-14] MEDS ORDERED: IOPAMIDOL-300 100 ML VIAL ONE (19:37)
[2018-08-14] MEDS ORDERED: IOPAMIDOL-300 100 ML VIAL IVP ONE (20:18)
--- NOTE | 2018-08-14 20:50 | CT Report ---
Reason: LLQ pain, h/o diverticultiis Procedure Date: 08/14/2018 Accession Number: [id number] / [id number] Procedure: CT - Abdomen/Pelvis W CPT Code: FULL RESULT: EXAM: CT ABDOMEN AND PELVIS EXAM DATE: 08/14/2018 08:16 PM. CLINICAL HISTORY: LLQ pain, h/o diverticultiis. COMPARISONS: ABDOMEN/PELVIS W/ 03/08/2017 10:25 AM. TECHNIQUE: Routine helical CT imaging was performed through the abdomen and pelvis. IV contrast: 100 ML ISOVUE 300. Enteric contrast: No. Reconstructions: Coronal and sagittal. In accordance with CT protocol optimization, one or more of the following dose reduction techniques were utilized for this exam: automated exposure control, adjustment of mA and/or KV based on patient size, or use of iterative reconstructive technique. FINDINGS: ABDOMEN: Lung Bases: Incompletely included lower lungs demonstrates dependent atelectasis. Heart size is within normal limits. No basilar effusions. Liver: Unremarkable. Spleen: Unremarkable. Pancreas: Unremarkable. Gallbladder/Bile Ducts: Gallbladder is unremarkable. Biliary tree is normal caliber. Adrenal Glands: Unremarkable. Kidneys: No mass, calculi, or hydronephrosis. Left renal cyst is present. Peritoneum/Mesentery/Bowel: No free fluid, free air, or collection. Sigmoid colonic thickening and inflammatory change of posterior sigmoid colonic diverticula, with mild surrounding pericolonic inflammatory change. The appendix is within normal limits. Lymph nodes: No mesenteric, periportal, or retroperitoneal lymphadenopathy. Vasculature: Abdominal aorta is nonaneurysmal. Portal vein is patent. Hepatic veins are patent. PELVIS: The bladder is unremarkable for the degree of distention. Uterus is present. No pelvic lymphadenopathy. Bones: No suspicious osseous lesions. IMPRESSION: Sigmoid diverticulitis. Segmental thickening of the sigmoid colon may be inflammatory and reactive muscular hypertrophy. If not already performed, colonoscopy is recommended once symptomatology resolves to exclude neoplasm. RADIA
[2018-08-14] MEDS ORDERED: metroNIDAZOLE 250 MG TABLET PO STA (21:11)
[2018-08-14] MEDS ORDERED: HYDROcod/ACET 5/325 Prepack 4 PO STA (21:27)
[2018-08-14] MEDS ORDERED: ONDANSETRON ODT 4 MG Prepack 2 TL PRN (21:27)
[2018-08-14 21:48] VITALS: BP 120/65
== END 2018-08-14 21:50 | disposition home or self-care (01) ==
LOC: ED 16:28
DX: K57.32 Diverticulitis of large intestine without perforation or abscess without bleeding (principal); F17.200 Nicotine dependence, unspecified, uncomplicated
CPT/HCPCS: 36415; 74177; 80053; 81003; 83690; 85025; 96361; 96374; 96375; 99284; A9270; J1170; Q9967; 81001; 87086

== ENCOUNTER 2018-10-04 08:48 | Day surgery (SDC) | payer MEDICARE, OTHER ==
[2018-10-04] MEDS ORDERED: LACTATED RINGERS 1,000 ML IV ONE (09:10)
[2018-10-04] MEDS ORDERED: MIDAZOLAM 2 MG/2 ML VIAL IVP ONE (10:08)
[2018-10-04] MEDS ORDERED: fentaNYL 250 MCG/5 ML VIAL IVP ONE (10:08)
[2018-10-04 11:31] VITALS: BP 111/62
== END 2018-10-04 08:49 | disposition home or self-care (01) ==
LOC: SDS 08:48
PROVIDERS: ATTEND Surgery
PROC: 0DJD8ZZ Inspection of Lower Intestinal Tract, Via Natural or Artificial Opening Endoscopic (ICD-10-PCS; principal; 2018-10-04 10:15)
DX: Z09 Encounter for follow-up examination after completed treatment for conditions other than malignant neoplasm (principal); Z87.19 Personal history of other diseases of the digestive system; K64.8 Other hemorrhoids; I10 Essential (primary) hypertension; I25.10 Atherosclerotic heart disease of native coronary artery without angina pectoris; R01.1 Cardiac murmur, unspecified; I25.2 Old myocardial infarction; Z87.891 Personal history of nicotine dependence; Z79.82 Long term (current) use of aspirin
CPT/HCPCS: 45378; J3010; J7120

== ENCOUNTER 2018-12-26 07:32 | Outpatient (CLI) | payer MEDICARE, OTHER ==
[2018-12-26 13:28] LABS: ALBUMIN 4.4 g/dL (3.2-5.5); ALBUMIN/GLOBULIN RATIO 1.5 (1.0-2.2); ALKALINE PHOSPHATASE 83 IU/L (42-121); ALT ALANINE AMINOTRANSFERASE 25 IU/L (10-60); AST ASPARTATE AMINOTRANSFERASE 22 IU/L (10-42); BILIRUBIN,TOTAL 0.6 mg/dL (0.2-1.0); BUN - BLOOD UREA NITROGEN 16 mg/dL (6-20); CALCIUM 9.3 mg/dL (8.5-10.3); CARBON DIOXIDE - CO2 26 mmol/L (21-32); CHLORIDE 103 mmol/L (101-111); CHOL/HDL RATIO 2.4 (<4.4); CHOLESTEROL 163 mg/dL; CREATININE 0.8 mg/dL (0.4-1.0); GFR - MDRD 72 (>89); GLUCOSE 106 mg/dL (70-100); HDL CHOLESTEROL 68 mg/dL; LDL CHOLESTEROL,CALCULATED 68 mg/dL; SODIUM 140 mmol/L (135-145); TOTAL PROTEIN 7.4 g/dL (6.7-8.2); VLDL CHOLESTEROL 27 mg/dL
== END 2018-12-26 23:59 | disposition home or self-care (01) ==
LOC: LAB.N 07:32
PROVIDERS: ATTEND Internal Medicine Cardiovascular Disease
DX: I25.810 Atherosclerosis of coronary artery bypass graft(s) without angina pectoris (principal)
CPT/HCPCS: 36415; 80053; 80061; 83721

== ENCOUNTER 2020-02-20 09:19 | Outpatient (CLI) | payer MEDICARE, OTHER ==
[2020-02-20 12:15] LABS: BASOPHILS % (AUTO) 0.7 %; EOSINOPHILS # (AUTO) 0.1 10^3/uL (0.0-0.7); EOSINOPHILS % (AUTO) 1.1 %; HGB - HEMOGLOBIN 15.4 g/dL (12.0-16.0); LYMPHOCYTES # (AUTO) 1.5 10^3/uL (1.5-3.5); LYMPHOCYTES % (AUTO) 26.8 %; MEAN CORPUSCULAR HEMOGLOBIN 32.4 pg (27.0-31.0); MEAN CORPUSCULAR HGB CONC 32.5 g/dL (32.0-36.0); MEAN CORPUSCULAR VOLUME 99.8 fL (81.0-99.0); MEAN PLATELET VOLUME 10.1 fL (7.9-10.8); MONOCYTES # (AUTO) 0.4 10^3/uL (0.0-1.0); MONOCYTES % (AUTO) 8.1 %; NEUTROPHILS # (AUTO) 3.4 10^3/uL (1.5-6.6); NEUTROPHILS % (AUTO) 63.1 %; PLT - PLATELET COUNT 229 10^3/uL (130-450); RED BLOOD COUNT 4.75 10^6/uL (4.20-5.40); RED CELL DISTRIBUTION WIDTH 12.9 % (12.0-15.0); WHITE BLOOD COUNT 5.4 x10^3/uL (4.8-10.8)
[2020-02-20 12:30] LABS: ALBUMIN 4.5 g/dL (3.2-5.5); ALBUMIN/GLOBULIN RATIO 1.6 (1.0-2.2); ALKALINE PHOSPHATASE 94 IU/L (42-121); ALT ALANINE AMINOTRANSFERASE 18 IU/L (10-60); AST ASPARTATE AMINOTRANSFERASE 17 IU/L (10-42); BILIRUBIN,TOTAL 0.6 mg/dL (0.2-1.0); BUN - BLOOD UREA NITROGEN 16 mg/dL (6-20); CALCIUM 9.4 mg/dL (8.5-10.3); CARBON DIOXIDE - CO2 25 mmol/L (21-32); CHLORIDE 103 mmol/L (101-111); CHOL/HDL RATIO 2.8 (<4.4); CHOLESTEROL 175 mg/dL; CREATININE 0.8 mg/dL (0.4-1.0); GLUCOSE 101 mg/dL (70-100); HDL CHOLESTEROL 62 mg/dL; LDL CHOLESTEROL,CALCULATED 84 mg/dL; LDL/HDL RATIO 1.4 (<4.4); SODIUM 138 mmol/L (135-145); TOTAL PROTEIN 7.3 g/dL (6.7-8.2); VLDL CHOLESTEROL 29 mg/dL
== END 2020-02-20 09:20 | disposition home or self-care (01) ==
LOC: LAB.WCP 09:19
PROVIDERS: ATTEND Physician Assistant Medical
DX: I10 Essential (primary) hypertension (principal); F41.9 Anxiety disorder, unspecified; I25.10 Atherosclerotic heart disease of native coronary artery without angina pectoris; R42 Dizziness and giddiness
CPT/HCPCS: 36415; 80053; 80061; 83721; 84443; 85025

== ENCOUNTER 2020-03-18 12:51 | Outpatient (CLI) | payer MEDICARE, OTHER ==
--- NOTE | 2020-03-18 16:20 | CT Report ---
PROCEDURE: Low Dose Lung Cancer Screen INDICATIONS: SMOKER TECHNIQUE: Noncontrast low-dose 5 mm thick sections acquired from the pulmonary apices to the posterior costophr enic angles. 7 mm thick coronal and sagittal MIP reformats were then acquired. For radiation dose r eduction, the following was used: automated exposure control, adjustment of mA and/or kV according t o patient size. COMPARISON: CTA chest 08/26/2017 FINDINGS: Image quality: Excellent. Lungs and pleura: Moderate centrilobular and paraseptal emphysema are seen in the upper lobes bilate rally. No suspicious pulmonary nodule is seen. The central airways are patent. There is no pleural ef fusion or pneumothorax. Mediastinum: A pretracheal lymph node measures up to 9 mm in diameter. No mediastinal adenopathy by size criteria. Heart size is normal. No pericardial effusion. Moderate coronary artery and thoracic aortic atherosclerotic ossifications are seen. Thoracic aorta and central pulmonary arteries are nor mal in size. Esophagus is normal in caliber. No hiatal hernia. Sternotomy wires are noted. Bones and chest wall: No suspicious bony lesions. No vertebral body compression fractures. No axil [place] or supraclavicular adenopathy by size criteria. The thyroid is normal in size. Abdomen: Visualized upper abdomen solid organs and bowel loops appear normal in the absence of contr ast. IMPRESSION: 1. No suspicious pulmonary nodule is seen. Lung RADS category 1. Recommend continued annual screenin g with the low-dose chest CT in 12 months. 2. Moderate centrilobular and paraseptal emphysema. Reviewed by: Reji Deng MD on 03/18/2020 3:34 PM PDT Approved by: Reji Deng MD on 03/18/2020 3:34 PM PDT Station ID: [id number]
== END 2020-03-18 12:52 | disposition home or self-care (01) ==
LOC: DI 12:51
PROVIDERS: ATTEND Physician Assistant Medical
DX: Z12.2 Encounter for screening for malignant neoplasm of respiratory organs (principal); J43.2 Centrilobular emphysema; J43.8 Other emphysema; F17.210 Nicotine dependence, cigarettes, uncomplicated
CPT/HCPCS: G0297 ×2

== ENCOUNTER 2020-06-19 15:14 | Outpatient (CLI) | payer MEDICARE, OTHER ==
--- NOTE | 2020-06-19 23:49 | DEXA Report ---
PROCEDURE: Dexa Spine and/or Hip INDICATIONS: POST MENOPAUSAL TECHNIQUE: Dual energy x-ray absorptiometry (DXA) was performed on a [employer] System. Regions measur ed are the AP Spine, femoral neck, and if needed forearm. COMPARISON: None. FINDINGS: Lumbar Spine: Bone Mineral Density 0.968 g/cm/cm,T score -1.9, osteopenia Left Hip: Bone Mineral Density 0.823 g/cm/cm,T score -1.5, osteopenia Left Femoral Neck: Bone Mineral Density 0.825 g/cm/cm, T score -1.5, osteopenia (T score greater or equal to -1.0: NORMAL) (T score from -1.1 to -2.4: OSTEOPENIA) (T score less than or equal to -2.5 to: OSTEOPOROSIS) Impression: Osteopenia is present at the lumbosacral spine overall, the left hip, and the left femora l neck. Patients with diagnosis of osteoporosis or osteopenia should have regular bone mineral density assess ment. For those eligible for Medicare, routine testing is allowed once every 2 years. Testing frequ ency can be increased for patients who have rapidly progressing disease or for those who are receivin g medical therapy to restore bone mass. Reviewed by: Thomas Jamison MD on 06/19/2020 4:55 PM PST Approved by: Thomas Jamison MD on 06/19/2020 4:55 PM PST Station ID: [id number]
== END 2020-06-19 15:15 | disposition home or self-care (01) ==
LOC: DI 15:14
PROVIDERS: ATTEND Physician Assistant Medical
DX: M85.89 Other specified disorders of bone density and structure, multiple sites (principal); Z78.0 Asymptomatic menopausal state

== ENCOUNTER 2020-07-02 08:00 | Outpatient (CLI) | payer MEDICARE, OTHER | END 2020-07-02 23:59 | disposition home or self-care (01) | LOC: LAB.R 08:00 | PROVIDERS: ATTEND Nurse Practitioner | DX: R05 Cough (principal); Z20.822 Contact with and (suspected) exposure to COVID-19 | CPT/HCPCS: 87275; 87276; U0004 ==